=== PATIENT | female | born 2000 | race Caucasian/White ===

== ENCOUNTER 2023-10-19 17:04 | Emergency (ER) | payer BC, SELFPAY ==
[2023-10-19] MEDS ORDERED: Acetaminophen 500 MG TAB ONE (17:12)
[2023-10-19] MEDS ORDERED: Ibuprofen 200 MG TAB ONE (17:44)
[2023-10-19 18:08] LABS: Influenza A by NAA Not Detected (NotDetected); Influenza B by NAA Not Detected (NotDetected); SARS-CoV-2 NAA Rapid Test Not Detected (NotDetected)
== END 2023-10-19 18:42 | disposition home or self-care (01) ==
LOC: NAV ERS 17:04
DX: B34.9 Viral infection, unspecified (principal); F17.290 Nicotine dependence, other tobacco product, uncomplicated
CPT/HCPCS: 99283

== ENCOUNTER 2023-12-09 17:06 | Emergency (ER) | payer BC | END 2023-12-09 17:57 | disposition home or self-care (01) | LOC: NAV ERS 17:06 | DX: J06.9 Acute upper respiratory infection, unspecified (principal); F17.210 Nicotine dependence, cigarettes, uncomplicated; Z55.6 Problems related to health literacy | CPT/HCPCS: 99283 ==